=== PATIENT | female | born 1990 | race Caucasian/White ===

== ENCOUNTER 2019-01-31 20:10 | Emergency (ER) | payer OTHER ==
[~2019-01-31] VITALS: Ht 170.2 cm; Wt 59.1 kg
[2019-01-31] MEDS ORDERED: PROZ10 PO (21:09)
[2019-01-31 22:00] VITALS: BP 140/78
== END 2019-01-31 22:13 | disposition home or self-care (01) ==
LOC: EMS 20:11
DX: F10.129 Alcohol abuse with intoxication, unspecified (principal); R03.0 Elevated blood-pressure reading, without diagnosis of hypertension; Z79.899 Other long term (current) drug therapy; Y90.0 Blood alcohol level of less than 20 mg/100 ml